=== PATIENT | male | born 1980 | race Hispanic/Latino ===

== ENCOUNTER 2018-02-19 15:36 | Day surgery (SDC) | payer SELFPAY ==
[~2018-02-19 15:36] MED LIST: Dexamethasone 20 MG/5 ML VIAL ONE; Glycopyrrolate 0.2 MG/ML 5 ML SYRINGE ONE; Lidocaine 1% PF 5 ML VIAL ONE; Ondansetron HCl/PF 4 MG/2 ML Vial ONE; PROPOFOL 200 MG/20 ML VIAL ONE; Succinylcholine Chloride 20 MG/ML 10 ml SYRINGE FS ONE
[2018-02-19 16:07] LABS: #Eosinphils 0.1 thou/uL (0.0-0.7); #Lymphocytes 1.8 thou/uL (1.20-3.40); #Monocytes 0.7 thou/uL (0.11-0.59); #Neutrophils 7.3 thou/uL (1.40-6.50); %Basophils 0.3 % (0.0-1.0); %Eosinophils 1.3 % (0.0-10.0); %Lymphocytes 18.3 % (21.0-51.0); %Neutrophils 73.2 % (42.0-75.0); Hemoglobin 15.4 g/dL (14.0-18.0); Mean Corpuscular HGB CONC 36.1 g/dL (32.0-36.0); Mean Corpuscular Hemoglobin 30.3 pg (27.0-31.0); Mean Platelet Volume 8.1 fL (7.4-10.4); Platelet Count 164 thou/uL (130-400); RBC Distribution Width 11.9 % (11.5-14.5); Red Blood Cell (RBC) Count 5.08 mill/uL (4.70-6.10); White Blood Cell (WBC) Count 9.9 thou/uL (4.8-10.8)
[2018-02-19 16:26] LABS: ALT (SGPT) 43 U/L (8-55); AST (SGOT) 22 U/L (5-34); Albumin 4.8 g/dL (3.5-5.0); Alkaline Phosphatase 35 U/L (40-150); Anion Gap 12 mmol/L (10-20); BUN (Urea Nitrogen) 15 mg/dL (8.9-20.6); Bilirubin, Total 1.3 mg/dL (0.2-1.2); Calc. Creatinine Clearance 0 mL/min (70-130); Calcium 9.9 mg/dL (7.8-10.44); Carbon Dioxide 27 mmol/L (22-29); Chloride 103 mmol/L (98-107); Estimated GFR-MDRD 87; Glucose 92 mg/dL (70-105); Lipase 17 U/L (8-78); Potassium 4.2 mmol/L (3.5-5.1); Protein, Total 7.8 g/dL (6.0-8.3); Sodium 138 mmol/L (136-145)
[2018-02-19] MEDS ORDERED: Ondansetron ODT 8 MG TAB ONE (16:54)
[2018-02-19] MEDS ORDERED: Piperacillin/Tazobactam 3.375 GM VIAL ONE (17:15)
--- NOTE | 2018-02-19 17:52 | HP ---
HISTORY OF PRESENT ILLNESS: A 37-year-old male patient, who presents to the emergency room accompani ed by his . He works construction. He lives in [place]. He has children. He has been healthy un til yesterday, when he began having epigastric pain migrating to his right lower quadrant. He has mae ffered anorexia, nausea, and increased pain with movement. He was evaluated in the emergency room by Dr. Orr and history and exam consistent with appendicitis, such that CAT scan was avoided. His white count is normal at 9, hemoglobin 15. Basic metabolic profile is normal. Bilirubin is slightly elevated at 1.3. ALLERGIES: None. SOCIAL HISTORY: Tobacco none. Alcohol rarely. MEDICATIONS: None routinely. PAST SURGICAL HISTORY: Right inguinal hernia repair. PAST MEDICAL HISTORY: Noncontributory. REVIEW OF SYSTEMS: Noncontributory. PHYSICAL EXAMINATION: VITAL SIGNS: Heart rate 80, blood pressure 120/70, respiratory rate 18. HEAD, EARS, EYES, NOSE, AND THROAT: Unremarkable. SKIN: Normal. NEUROLOGIC: Intact. LUNGS: Clear to auscultation. CARDIAC: Regular rate and rhythm without murmur or gallop. ABDOMEN: Soft. Tenderness in right lower quadrant, guarding, rebound. EXTREMITIES: Unremarkable. No ankle edema. SKIN: Normal skin. LYMPH: No lymphadenopathy. ASSESSMENT AND PLAN: Acute appendicitis. PLAN: I have recommended laparoscopic video appendectomy. Risk of infection, bleeding, re-operation , appendiceal stump leak were discussed and he consents.
[2018-02-19] MEDS ORDERED: Ketorolac Tromethamine 30 MG/ML VIAL ONE (17:55)
[2018-02-19] MEDS ORDERED: Bupivacaine HCl 0.5%/Epinephrine 1:200,000/PF 30 ml Vial ONE (19:33)
--- NOTE | 2018-02-20 04:31 | OP ---
DATE OF SERVICE: 02/19/2018 PREOPERATIVE DIAGNOSIS: Acute appendicitis. POSTOPERATIVE DIAGNOSIS: Acute appendicitis. PROCEDURE: Laparoscopic video appendectomy. SURGEON: Román Flores M.D. ANESTHESIA: General. Local 0.5% Marcaine with epinephrine 30 mL. FINDINGS: Acute appendicitis. Appendix removed in an Endobag. PROCEDURE: Patient was taken to the operating room where under general anesthesia, Moss catheter pl aced at the beginning of the procedure, removed at the end. Abdomen was clipped of hair, prepared wi th ChloraPrep, draped in routine fashion. Local anesthetic infiltrated into skin and subcutaneous ti ssue about each port site. Infraumbilical incision made. Pneumoperitoneum to 15 mmHg obtained with the Veress needle, replacing it with a 5-port laparoscope inserted. Right lateral subcostal incision made and a 5-port placed. Suprapubic incision made and a 12 port placed. Appendix was acutely infl luisito. Mesoappendix taken down with LigaSure. Stump of the appendix divided with Endo blue load NATIVIDAD stapler in the cecal stump. Appendix placed in Endobag and removed. Suprapubic fascia approximated with 0 Vicryl GraNee needle. The area of dissection irrigated. Good hemostasis ensured. Irrigant e vacuated. Pneumoperitoneum evacuated. All instruments removed and all skin incisions approximated w ith interrupted subdermal 4-0 Monocryl and DermaGlue applied.
== END 2018-02-19 22:40 | disposition home or self-care (01) ==
LOC: ERS 15:36 → SDC/OP 19:31
PROVIDERS: ATTEND Specialist
PROC: 0DTJ4ZZ Resection of Appendix, Percutaneous Endoscopic Approach (ICD-10-PCS; principal; 2018-02-19)
DX: K35.80 Unspecified acute appendicitis (principal)
CPT/HCPCS: 36415; 80053; 83690; 85025; 88304; 96374; 96375; J0131; J0670; J1100; J1885; J2001; J2270; J2405; J2543; J2704